=== PATIENT | female | born 1960 | race African-American/Black ===

== ENCOUNTER 2021-03-09 15:00 | Inpatient (IN) | payer OTHER ==
[~2021-03-09] VITALS: Ht 162.6 cm; Wt 107.0 kg
[2021-03-09 15:10] VITALS: BP 160/79
[2021-03-09 15:42] LABS: ABSOLUTE NEUTROPHILS 3.8 thou/uL (1.4-8.2); BASOPHILS 0.9 % (0.0-2.0); EOSINOPHILS 2.1 % (0.0-3.0); HEMATOCRIT 36.8 % (37.0-47.0); HEMOGLOBIN 12.3 gm/dL (12.0-15.0); LYMPHOCYTES 32.6 % (24.0-44.0); MCH 27.6 pg (26.0-34.0); MCHC 33.5 g/dL (28.0-37.0); MCV 82.3 fL (80.0-100.0); MONOCYTES 6.9 % (1.0-8.0); PLATELET COUNT 263 thou/uL (150-400); POLYS 57.5 % (36.0-66.0); RBC 4.47 mil/uL (4.20-5.00); RDW 16.1 % (10.5-14.5); WBC 6.6 thou/uL (4.0-11.0)
[2021-03-09 15:51] LABS: CALCIUM 9.9 mg/dL (8.5-10.1); CREATININE 1.1 mg/dL (0.6-1.0); POTASSIUM 4.4 mmol/L (3.5-5.1)
[2021-03-09 15:57] LABS: ALBUMIN 3.7 g/dL (3.4-5.0); TOTAL BILIRUBIN 0.4 mg/dL (0.2-1.0); TOTAL PROTEIN 7.8 g/dL (6.4-8.2)
[2021-03-09] MEDS ORDERED: MYCOPHENOLATE500 MG PO (17:43)
[2021-03-09] MEDS ORDERED: ROSUVASTATIN CA40 MG PO (17:43)
[2021-03-09] MEDS ORDERED: TACROLIMUS1 MG PO (17:43)
[2021-03-09] MEDS ORDERED: ARIMIDEX1 MG PO (17:44)
[2021-03-09] MEDS ORDERED: METFORMIN HCL500 M3 PO (17:44)
[2021-03-09] MEDS ORDERED: AMLODIPINE BESY10 MG PO (17:44)
[2021-03-09] MEDS ORDERED: ASTAGRAF XL1 MG PO (17:44)
[2021-03-09] MEDS ORDERED: VAZALORE81 MG PO (17:45)
[2021-03-09 18:27] LABS: ALBUMIN 3.7 g/dL (3.4-5.0); TOTAL PROTEIN 8.1 g/dL (6.4-8.2)
[2021-03-09 22:04] VITALS: BP 168/91
[2021-03-10 05:42] LABS: HEMATOCRIT 35.7 % (37.0-47.0); HEMOGLOBIN 11.8 gm/dL (12.0-15.0); MCH 27.7 pg (26.0-34.0); MCV 83.9 fL (80.0-100.0); RBC 4.26 mil/uL (4.20-5.00); RDW 16.1 % (10.5-14.5); WBC 5.8 thou/uL (4.0-11.0)
[2021-03-10 05:54] LABS: CREATININE 1.1 mg/dL (0.6-1.0); MAGNESIUM 1.4 mg/dL (1.8-2.4); POTASSIUM 4.6 mmol/L (3.5-5.1)
--- NOTE | 2021-03-10 07:34 | EKG ---
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 : 1960 Requested By: Tiffanie Arreola Order Number: [id number] MD: Eddi Harvey Measurements Intervals [place] Rate: 94 P: 23 WV: 173 QRS: 17 QRSD: 87 T: 34 QT: 342 QTc: 428 Interpretive Statements Sinus rhythm Abnormal R-wave progression, early transition Inferior infarct, old Probable anterolateral infarct, old Baseline wander in lead(s) III No previous ECG available for comparison Electronically Signed On 03-10-2021 7:34:35 CDT by Eddi Harvey [email or web address] <ELECTRONICALLY SIGNED> By: Eddi Harvey MD, [facility] 03/10/21 0734 [id number] Eddi Harvey MD, [facility] /EPI
[2021-03-10 11:00] VITALS: BP 161/74
--- NOTE | 2021-03-10 14:31 | NUR ---
60-year-old female with history of right-sided mastectomy from breast cancer, kidney transplant on antirejection medications, hypertension, diabetes, hyperlipidemia. She comes to the hospital complaining of 1 week symptoms of shortness of breath, productive cough and generalized weakness. The patient states that her best friend was sick around that time. Per ED assessment the patient is A&O x4 and shows with a negative ID Now test and stating vaccination with Moderna complete. The patient has been admitted with: Acute respiratory failure w/ sepsis from atypical vs viral PNA on an immunocompromised patient, Hx of Kidney transplant, DMII and hx of Breast CA. CM will follow for discharge planning as medical care team establish identified discharge needs as care continues. Per the record the daughter Tressa Lehman is listed as the next of kin at [phone]
[2021-03-10 15:22] VITALS: BP 130/59
[2021-03-10 15:35] VITALS: BP 141/56
--- NOTE | 2021-03-10 19:46 | NUR ---
Pt arrived to floor from emergency dept around 1600 in stable condition. Admission hs,assessment and careplan completed.Dinner tray given with ice water.Pt instructed staffing consultant light and bed usage.Will continue to monitor.
[2021-03-10 20:48] VITALS: BP 158/79
--- NOTE | 2021-03-11 03:53 | NUR ---
ASSUMED PT CARE AT 1920. PT IS ALERT AND OREINTED X4. PT IS PLEASNT AND COOPEPRATIVE. PT WAS RE-EDUCATED ON THE USE OF THE CALL LIGHTS. CONCSENTS FORM WERE SIGNED. PT REQUESTED FOR PAIN MED AND SLEEPING MEDS FOR WHICH AN ORDER WAS PLACED. PT ISUP AD NAYAN TO THE BR. PT CONCERNS ABOUT MEDS WERE ADDRESSED. PT DID NOT VERBALIZE ANY OTHER CONCERNS AND NO VISIBLE SIGNS OF DISTRESS WAS NOTED. FALL PRECAUTIONS IN PLACE WITH CALL LIGHT WITHIN REACH. WILL CONTINUE TO MONITOR
[2021-03-11 05:52] LABS: HEMATOCRIT 36.2 % (37.0-47.0); HEMOGLOBIN 11.9 gm/dL (12.0-15.0); MCH 27.7 pg (26.0-34.0); MCV 83.8 fL (80.0-100.0); RBC 4.32 mil/uL (4.20-5.00); WBC 9.1 thou/uL (4.0-11.0)
[2021-03-11 06:19] LABS: CALCIUM 9.6 mg/dL (8.5-10.1); CREATININE 0.8 mg/dL (0.6-1.0); MAGNESIUM 1.7 mg/dL (1.8-2.4); POTASSIUM 4.3 mmol/L (3.5-5.1)
[2021-03-11 15:45] VITALS: BP 150/73
--- NOTE | 2021-03-11 16:05 | NUR ---
PT ADMITTED RELATED TO ATYPICAL VS VIRAL PNEUMONIA; ACUTE RESP FAILURE W/SEPSIS. CM REVIEWED CHART AND SPOKE WITH CARE TEAM. CM MET WITH PT AT BEDSIDE THIS DAY. PT APPEARED TO BE A&O X4. CM ROLE INTRODUCED. PT INDICATED SHE LIVES IN A 3RD FLOOR APARTMENT WITH HER SON. PT INDICATED SHE HAD BEEN INDEPEDNENT WITH GAIT AND ADLS LPN RN HOSPICE. PT INDICATED SHE HAS A CPAP FOR HOME USE. PT INDICATED SHE PLANS TO RETURN HOME ONCE MEDICALLY STABLE. CM FOLLOWING REGARDING DC PLANNING.
--- NOTE | 2021-03-11 16:43 | NUR ---
Assumed pt care at 7am.Pt up in chair resting and watching tv.Assessment completed.vss.Pt c/o anxiety ,emotional support and reassurance given.Piv infiltrated early this am.Iv team paged and it was replaced.Pt ambulated in hallways several times later this shift.Tramadol given for headache with relief once this shift.Will continue to monitor.
[2021-03-11 21:32] VITALS: BP 142/57
--- NOTE | 2021-03-12 03:42 | NUR ---
ASSUMED CARE OF PT AT SHIFT CHANGE. PT IS AOX4 AND UP AD NAYAN. PT REPORTED SOME PAIN; PRNS PROVIDED. INSULIN AND METFORMIN STARTED. PT DENIED NAUSEA OR SOA. PT WAS ABLE TO GET COMFORTABLE AND SLEEP PART OF THE SHIFT. VSS AND NO S/S OF ACUTE DISTRESS. WILL CONTINUE TO MONITOR FOR CHANGES.
[2021-03-12 04:49] LABS: HEMATOCRIT 35.1 % (37.0-47.0); HEMOGLOBIN 11.8 gm/dL (12.0-15.0); MCH 27.8 pg (26.0-34.0); MCHC 33.7 g/dL (28.0-37.0); MCV 82.4 fL (80.0-100.0); RBC 4.26 mil/uL (4.20-5.00); RDW 16.2 % (10.5-14.5); WBC 7.5 thou/uL (4.0-11.0)
[2021-03-12 07:07] LABS: CALCIUM 9.6 mg/dL (8.5-10.1); MAGNESIUM 1.6 mg/dL (1.8-2.4); POTASSIUM 4.2 mmol/L (3.5-5.1)
[2021-03-12 07:13] VITALS: BP 138/69
[2021-03-12 11:48] VITALS: BP 138/69
--- NOTE | 2021-03-12 11:49 | NUR ---
CARE TEAM INDICATED THAT PT IS MEDICALLY STABLE TO DC HOME THIS DAY. PT IS TO DC HOME TO SELF CARE. PT DOESN'T NEED ANY HH OR DME SUPPLIES UPON DC. PT'S FAMILY TO PROVIDE TRANSPORT HOME THIS DAY. PT TO DC HOME TO SELF CARE THIS DAY. NO OTHER CM INTERVENTION INDICATED. CASE CLOSED.
--- NOTE | 2021-03-12 12:03 | NUR ---
ASSUMED CARE OF PATIENT AT SHIFT CHANGE. ASSESSMENT CHARTED. MEDS ADMINISTERED PER EMAR. VSS. PATIENT A&OX4 AND MAKES NEEDS KNOWN; BRP. PATIENT STILL HAS COUGH; TESSALON PEARLS ORDERED FOR THIS PATIENT. PATIENT SEEN BY PROVIDER AND DEEMED MEDICALLY STABLE FOR DISCHARGE. STILL AWAITING DISCHARGE ORDERS. PATIENT TAKING SHOWER W SETUP ASSISTANCE. NO OTHER NEW FINDINGS OR COMPLAINTS. WILL CONTINUE TO MONITOR AND FOLLOW PLAN OF CARE UNTIL DISCHARGE
[2021-03-12] MEDS ORDERED: LEVOFLOXACIN250 MG PO (12:14)
[2021-03-12] MEDS ORDERED: TESSALON PERLE100 MG PO (13:53)
--- NOTE | 2021-03-12 15:59 | NUR ---
THIS RN AGREES WITH THE SUGAR MIXER ASSESSMENT.
== END 2021-03-12 17:39 | disposition home or self-care (01) | DRG 871 ==
LOC: ER 15:00 → EROBS 17:18 → 4W 17:18
PROVIDERS: Nurse Practitioner Family; ADMIT Internal Medicine; ATTEND Internal Medicine
DX: A41.9 Sepsis, unspecified organism (principal); J96.00 Acute respiratory failure, unspecified whether with hypoxia or hypercapnia; J12.9 Viral pneumonia, unspecified; Z94.0 Kidney transplant status; D84.9 Immunodeficiency, unspecified; E78.5 Hyperlipidemia, unspecified; Z20.822 Contact with and (suspected) exposure to COVID-19; I10 Essential (primary) hypertension; E78.00 Pure hypercholesterolemia, unspecified; E11.9 Type 2 diabetes mellitus without complications; Z90.13 Acquired absence of bilateral breasts and nipples; Z85.3 Personal history of malignant neoplasm of breast; Z88.6 Allergy status to analgesic agent; Z88.8 Allergy status to other drugs, medicaments and biological substances; Z79.899 Other long term (current) drug therapy
CPT/HCPCS: 10045